=== PATIENT | male | born 1960 | race Caucasian/White ===

== ENCOUNTER 2024-09-01 09:19 | Day surgery (SDC) | payer MEDICARE, BC ==
[2024-08-26 10:01] LABS: MEAN PLATELET VOLUME 6.7 FL (7.4-10.4); RED CELL DISTRIBUTION WIDTH 13.9 % (11.5-14.5)
[2024-08-26 10:09] LABS: APTT 27 SECONDS (22-32); INR 1.0 INR
[2024-08-26 10:14] LABS: CHOL/HDL RATIO 2.4 (0.00-4.99); CREATININE 0.83 MG/DL (0.60-1.10); LDL CHOLESTEROL 71 MG/DL (50-100); TOTAL CARBON DIOXIDE 28.2 MMOL/L (24-32); eGFR > 90 ML/MIN
[2024-09-01] VITALS (10 sets, daily range): BP systolic 110–135; BP diastolic 53–70; PULSE 61–69; RESP 10–16; TEMP 97.9; O2SAT 95–98
[~2024-09-01] VITALS: Ht 182.9 cm; Wt 105.3 kg
[2024-09-01] MEDS ORDERED: METO-395 PO (09:49)
[2024-09-01] MEDS ORDERED: LOSA50TA64 PO (09:49)
[2024-09-01] MEDS ORDERED: LIDOcaine 1% (10mg/ml) 2ml vial ONE (11:57)
[2024-09-01] MEDS ORDERED: verapamil 2.5 mg/ml inj IV ONE (11:57)
[2024-09-01] MEDS ORDERED: midazolam 1 mg/ML 2ml injection ONE ×2 (11:58→12:46)
[2024-09-01] MEDS ORDERED: heparin 1,000unit/ml 10ml vial 10 ML ONE (11:58)
[2024-09-01] MEDS ORDERED: nitroGLYCERIN 500mcg/5mL D5W 5 ML IV ONE (11:58)
[2024-09-01] MEDS ORDERED: fentaNYL/PF 50MCG/1 ML 2ML syringe ONE (11:58)
[2024-09-01 13:15] LABS: ISTAT HGB ART 13.3 g/dl (14.0-17.9); ISTAT Hct ART 39 %PCV (42-52); ISTAT O2 SATURATION ARTERIAL 94 % (95-98); ISTAT SOURCE ART
--- NOTE | 2024-09-01 13:42 | ELECTROCARDIOGRAPH REPORT ---
[facility] Test Date: 2024-09-01 Test Time: 11:01:58 Pat Name: SANTI FOUNTAIN Department: SHORT STAY 1ST FLOOR [id number] Room: Gender: M Nurse Advisor: : [id number] Requested By: JERALD TREADWELL Order Number: [id number] Reading MD: Dr. NHUNG Cota Measurements Intervals [place] Rate: 63 P: 1 GA: 157 QRS: 90 QRSD: 141 T: 6 QT: 446 QTc: 457 Interpretive Statements Sinus rhythm RBBB and LPFB Electronically Signed On 09-02-2024 16:35:[address] NHUNG Cota Please click the below link to view image of tracing.
[2024-09-01] MEDS ORDERED: HYDROcodone/acetaminophen 5mg/325mg tablet PO PRN (13:45)
[2024-09-01] MEDS ORDERED: HYDROcodone/acetaminophen 10/325mg tab PO PRN (13:45)
--- NOTE | 2024-09-01 15:42 | CARDIAC CATH REPORT ---
Cardiac Cath Report Providers to CC CC: JERALD TREADWELL MD Procedure Comments: 1. Right Heart Catheterization 2. Left Heart Catheterization 3. Right Brachial vein access 4. Right Radial artery access Brief History/Indications: 64yo man with HTN, HoCM, Aortic stenosis referred for evaluation of vs HoCM. Techniques: After informed consent was obtained, the patient was brought to the cardiac c atheterization laboratory and prepped and draped in usual sterile fashion for left heart catheterization and other procedures mentioned above. The right wrist and right AC fossa were anesthetized with 1% Lidocaine. The right AC IV was exchanged over a wire for an 6fr sheath. The right radial artery accessed via the Seldinger technique after which a 6Fr sheath was placed. The Catlett was advanced via the right AC sheath to the right atrium, the right ventricle, the pulmonary artery, and wedge position. Through the 6Fr right radial sheath, a TIG was used to engage the left coronary artery and the right coronary artery. The TIG was then used to cross into the left ventricle at which time it was exchanged for a Zachery Catheter and serial measurements were performed. At the conclusion of the case the sheath was removed and hemostasis obtained with a VascBand for the radial sheath and manual compression for the brachial sheath. Findings Findings: HEMODYNAMICS: RA: 5 mmHg RV: 33/-, RVEDP 8 mmHg PA: 37/18, mPAP 26 mmHg PCWP: 15 mmHg (V-waves to 17mmHg) TP mmHg DP mmHg PA Sat: 76% Ao Sat: 94% CO/CI (Fidel): 8.36/3.70 PVR: 1 WANG Baseline: LV: 165/1, LVEDP 11 mmHg Ao: 114/65, MAP 78 mmHg Post-PVC: LV: 179/7, LVEDP 18 mmHg Ao: 112/60, MAP 75 mmHg Aortic Valve level: LV: 121/18, LVEDP 24mmHg Ao: 106/56, MAP 78 mmHg CORONARY ARTERIES: Rt Dominant LMCA: Luminal Irregularities LAD: 20% mid stenosis Dx: Luminal Irregularities LCx: Luminal Irregularities OM1: Small OM2: Luminal Irregularities RCA: 20% mid stenosis PDA: Luminal Irregularities PL: Luminal Irregularities Results Results: 1. Findings consistent with HoCM given significant LVOT gradient, post-PVC change and peak-peak of ~ 15mmHg across the aortic valve level on slow pullback 2. RRA and RBV access, closed with VascBand and manual compression RECOMMENDATIONS: 1. Agree with Evaluation of NAVJOT Ford MD Sep 01, 2024 15:42
[2024-09-02 15:02] LABS: ISTAT HGB MIX 13.3 g/dl (14.0-17.9); ISTAT Hct MIX 39 %PCV (42-52); ISTAT O2 SATURATION MIX VENOUS 76 % (60-80); ISTAT SOURCE VEN
== END 2024-09-01 15:40 | disposition home or self-care (01) ==
LOC: SSTAY O 09:19 → EDSTATUS 12:30 → SSTAY O 15:40
PROVIDERS: ATTEND Internal Medicine Interventional Cardiology
DX: I35.0 Nonrheumatic aortic (valve) stenosis (principal); I25.10 Atherosclerotic heart disease of native coronary artery without angina pectoris; E78.5 Hyperlipidemia, unspecified; I10 Essential (primary) hypertension; Z79.01 Long term (current) use of anticoagulants; I42.1 Obstructive hypertrophic cardiomyopathy; G47.30 Sleep apnea, unspecified; M16.10 Unilateral primary osteoarthritis, unspecified hip; Z79.899 Other long term (current) drug therapy
CPT/HCPCS: 36415; 80048; 80061; 82803; 83695; 85014; 85025; 85610; 85730; 93005; 93460; 99152; 99153; A6258; A6402; C1751; C1887; C1894; J1644; J2003; J2250; J3010; J3490; J7030; Q9967; Z7610